=== PATIENT | male | born 1960 | race Caucasian/White ===

== ENCOUNTER 2020-02-13 15:03 | Observation (INO) | payer BC, OTHER ==
[~2020-02-13 15:03] MED LIST: DEXAMETHASONE SOD PHOSPHATE INJ 4 MG/1 ML VIAL ONE; ONDANSETRON HCL INJ/PF 4 MG/2 ML SDV ONE; SUCCINYLCHOLINE CHLORIDE INJ 200 MG/10 ML VIAL ONE
[2020-02-13] MEDS ORDERED: DIPH/PERTUSS(ACELL)/TETANUS VAC/PF 0.5 ML SYR (>=10YO) IM ONE (15:07)
--- NOTE | 2020-02-13 15:09 | ER Document Report ---
ED Medical Screen (RME) - General Stated Complaint: RIGHT HAND INJURY Time Seen by Provider: 02/13/20 15:07 Primary Care Provider: MARLON LOUIE [Primary Care Provider] - Follow up as needed Notes: HPI: 59-year-old male presenting with a laceration to the right wrist. Patient was using a rotary surface grinder and it kicked back striking him on the volar aspect of the right wrist. States he had difficulty controlling the bleeding, not on blood thinners, not up-to-date on tetanus vaccination PHYSICAL EXAMINATION: Dressing was opened in triage. There is a 3.5 cm diagonal laceration over the volar distal right wrist on the radial side. Not actively b leeding at this time but large amount of blood noted on the dressing I have greeted and performed a rapid initial assessment of this patient. A comprehensive ED assessment and evaluation of the patient, analysis of test results and completion of medical decision making process will be conducted by an additional ED providers. Doctor's Discharge - Discharge Referrals: MARLON LOUIE [Primary Care Provider] - Follow up as needed
--- NOTE | 2020-02-13 15:41 | RADIOLOGY REPORT (SQ) ---
EXAM DESCRIPTION: WRIST RIGHT 3 VIEWS IMAGES COMPLETED DATE/TIME: 02/13/2020 3:29 pm REASON FOR STUDY: wrist laceration COMPARISON: None. EXAM PARAMETERS: NUMBER OF VIEWS: Three views. TECHNIQUE: AP, lateral and oblique radiographic images acquired of the right wrist. LIMITATIONS: None. FINDINGS: MINERALIZATION: Normal. BONES: No acute fracture or dislocation. No worrisome bone lesions. JOINTS: No effusion. SOFT TISSUES: Mild soft tissue swelling. There are some 1-2 mm radiopaque foreign bodies in the righ t thumb the region of the proximal phalanx and MCP joint, possibly remote. OTHER: No other significant finding. IMPRESSION: NO FRACTURE.Mild soft tissue swelling. There are some 1-2 mm radiopaque foreign bodies in the right thumb the region of the proximal phalanx and MCP joint, possibly remote. TECHNICAL DOCUMENTATION: JOB ID: [id number] [place]-72 2010 [employer]- All Rights Reserved Reading location - IP/workstation name: [email or web address]
[2020-02-13] MEDS ORDERED: ONDANSETRON HCL INJ/PF 4 MG/2 ML SDV ONE (15:46)
[2020-02-13] MEDS ORDERED: ONDANSETRON HCL INJ/PF 4 MG/2 ML SDV IV ONE (15:48)
[2020-02-13] MEDS ORDERED: NORMAL SALINE 1000 ML 1,000 ML IV ONE (15:52)
[2020-02-13 16:15] LABS: ABSOLUTE EOSINOPHILS # (AUTO) 0.1 10^3/uL (0.0-0.6); ABSOLUTE LYMPHOCYTES (AUTO) 1.7 10^3/uL (0.5-4.7); ABSOLUTE MONOCYTES (AUTO) 0.7 10^3/uL (0.1-1.4); ABSOLUTE NEUT (AUTO) 10.2 10^3/uL (1.7-8.2); BASOPHILS % (AUTO) 0.4 % (0-2); EOSINOPHILS % (AUTO) 0.7 % (0-6); HEMOGLOBIN 13.8 g/dL (13.5-17.0); LYMPHOCYTES % (AUTO) 13.1 % (13-45); MEAN CORPUSCULAR HEMOGLOBIN 31.6 pg (27.0-33.4); MEAN CORPUSCULAR HGB CONC 34.5 g/dL (32.0-36.0); MEAN CORPUSCULAR VOLUME 92 fl (80-97); MONOCYTES % (AUTO) 5.7 % (3-13); PLATELET COUNT 230 10^3/uL (150-450); RED BLOOD COUNT 4.37 10^6/uL (4.35-5.55); RED CELL DISTRIBUTION WIDTH 13.4 % (11.5-14.0); SEGMENTED NEUTROPHILS % (AUTO) 80.1 % (42-78); TOTAL CELLS COUNTED % (AUTO) 100 %; WHITE BLOOD COUNT 12.8 10^3/uL (4.0-10.5)
[2020-02-13] MEDS ORDERED: FENTANYL CITRATE INJ/PF 100 MCG/2 ML AMPUL ONE ×2 (16:23→16:38)
--- NOTE | 2020-02-13 16:24 | ER Document Report ---
ED General - General Chief Complaint: Laceration Stated Complaint: RIGHT HAND INJURY Time Seen by Provider: 02/13/20 15:07 - HPI Notes: Patient is a 5-year-old male, [id number], who presents to the emergency department for evaluation. While using a billet grinder, it slipped, lacerating the radial aspect of his right volar forearm. He tried to achieve hemostasis at home with his hand raise, but it was "squirting" in a pulsatile fashion per family. His tetanus is not up-to-date. He denies any numbness or tingling. He has minimal pain. - Related Data Allergies/Adverse Reactions: No Known Allergies Allergy (Verified 02/13/20 15:08) Home Medications: Blood pressure medication per patient Past Medical History - General Information source: Patient - Social History Smoking Status: Never Smoker Frequency of alcohol use: 3-4 times a week, beer Family History: Reviewed & Not Pertinent, Hypertension - Past Medical History Cardiac Medical History: Reports: Hx Hypertension Review of Systems - Review of Systems Constitutional: No symptoms reported EENT: No symptoms reported Cardiovascular: No symptoms reported Respiratory: No symptoms reported Genitourinary: No symptoms reported Musculoskeletal: No symptoms reported Skin: See HPI Neurological/Psychological: No symptoms reported Physical Exam - Vital signs Vitals: Temp Pulse Resp BP Pulse Ox 97.8 F 135 H 20 106/86 H 98 02/13/20 15:12 02/13/20 15:12 02/13/20 15:12 02/13/20 15:12 02/13/20 15:12 - Notes Notes: This is a 59-year-old male who appears his stated age, no acute distress. Head is normocephalic and atraumatic, pupils are equal round, reactive to light. Onychosis moist. Heart is regular rate and rhythm, lungs are clear auscultation bilaterally. Examination of the right upper extremity yields a 3 and half ce ntimeter linear, transverse laceration to the radial aspect of the volar wrist. He has a blood pressure cuff in place to slow blood flow. Patient is full range of motion at the wrist, fingers, thumb. Capillary refill is brisk. Patient has 2+ radial pulse proximal to the wound, 1+ radial pulse distal to the wound. Course - Re-evaluation Re-evalutation: 02/13/20 16:24 Patient presented to the emergency department for evaluation. He had significant bleeding, blood pressure cuff was placed up to 220. I was able to temporarily achieve hemostasis. I had significant concern that the patient's radial artery had been compromised. I spoke initially to Dr. Lewis, who agrees that the patient needs to go to the OR. I was notified by nursing that he was starting to bleed through the pressure dressing that was in place. I was in the room helping to assist achieve hemostasis, new pressure dressing was getting ready replaced, with Dr. Ureña presented to the emergency department. He was able to evaluate the laceration rapidly and determined that this was in fact a radial arterial bleed. He took the patient directly to the OR. - Vital Signs Vital signs: Temp Pulse Resp BP Pulse Ox 97.8 F 135 H 20 106/86 H 98 02/13/20 15:12 02/13/20 15:12 02/13/20 15:12 02/13/20 15:12 02/13/20 15:12 - Laboratory Result Diagrams: 02/13/20 15:56 Laboratory results interpreted by me: 02/13/20 15:56 WBC 12.8 H Absolute Neuts (auto) 10.2 H Seg Neutrophils % 80.1 H - Diagnostic Test Radiology reviewed: Image reviewed, Reports reviewed Radiology results interpreted by me: 02/13/20 16:26 Wrist X-Ray 02/13/20 15:07 IMPRESSION: NO FRACTURE.Mild soft tissue swelling. There are some 1-2 mm radiopaque foreign bodies in the right thumb the region of the proximal phalanx and MCP joint, possibly remote. Critical Care Note - Critical Care Note Total time excluding time spent on procedures (mins): 30 Discharge - Discharge Clinical Impression: Laceration of radial artery Qualifiers: Encounter type: initial encounter Laterality: right Qualified Code(s): S55.111A - Laceration of radial artery at forearm level, right arm, initial encounter Condition: Stable Disposition: ADMITTED INPATIENT Admitting Provider: Surgicalist - Dr. Ureña Unit Admitted: OR
[2020-02-13] MEDS ORDERED: MIDAZOLAM 2 MG/2 ML INJ ONE (16:37)
[2020-02-13] MEDS ORDERED: CEFAZOLIN INJ 1 GM VIAL ONE (16:45)
[2020-02-13] MEDS ORDERED: BUPIVACAINE HCL 0.25 % INJ/PF (2.5 MG/1 ML) 30 ML VIAL ONE (16:45)
--- NOTE | 2020-02-13 17:38 | PDOC CONSULTATION ---
Consultation Consult Date: 02/13/20 Provider Consulted: Jonathan Lewis History of Present Illness Admission Date/PCP: 02/13/20 16:31 TOMAS CASTELLANOS Patient complains of: Right wrist laceration History of Present Illness: DOLORES DUEÑAS is a 59 year old male who sustained a grinder hardboard injury to his right wrist. Subjective HPI was not obtained due to intraoperative consultation. Past Medical History Cardiac Medical History: Reports: Hypertension Social History Smoking Status: Never Smoker Family History Family History: Reviewed & Not Pertinent, Hypertension Parental Family History Reviewed: No Children Family History Reviewed: NA Sibling(s) Family History Reviewed.: NA Medication/Allergy Allergies/Adverse Reactions: No Known Allergies Allergy (Verified 02/13/20 15:08) Physical Exam Vital Signs: Temp Pulse Resp BP Pulse Ox 97.8 F 135 H 20 106/86 H 98 02/13/20 15:12 02/13/20 15:12 02/13/20 15:12 02/13/20 15:12 02/13/20 15:12 Intake & Output 02/12/20 02/13/20 02/14/20 06:59 06:59 06:59 Weight 77.111 kg Musculoskeletal exam: PRESENT: other - Intraoperative examination of the right wrist demonstrated 4 cm laceration on the volar radial aspect of the wrist just proximal to the wrist flexion crease. Near complete laceration of the radial artery was noted with nondisplaced fracture of the distal radius. No evidence of median nerve involvement. Results Laboratory Results: 02/13/20 15:56 02/13/20 15:56 WBC 12.8 H RBC 4.37 Hgb 13.8 Hct 40.0 MCV 92 MCH 31.6 MCHC 34.5 RDW 13.4 Plt Count 230 Seg Neutrophils % 80.1 H Impressions: Wrist X-Ray 02/13/20 15:07 IMPRESSION: NO FRACTURE.Mild soft tissue swelling. There are some 1-2 mm radiopaque foreign bodies in the right thumb the region of the proximal phalanx and MCP joint, possibly remote. Assessment & Plan - Diagnosis (1) Open fracture of distal end of radius Qualifiers: Encounter type: initial encounter Open fracture type: open type I or II Laterality: right Is this a current diagnosis for this admission?: Yes (2) Laceration of radial artery Qualifiers: Encounter type: initial encounter Laterality: right Qualified Code(s): S55.111A - Laceration of radial artery at forearm level, right arm, initial encounter Is this a current diagnosis for this admission?: Yes Plan: Intraoperative consultation was obtained refer to op note for details. Patient will be treated with p.o. antibiotics no immobilization was required given the incomplete nature and stability of the fracture.
[2020-02-13] MEDS ORDERED: MEPERIDINE HCL/PF INJ 25 MG/1 ML DISP.SYRIN IV PRN (17:50)
[2020-02-13] MEDS ORDERED: OXYCODONE-ACETAMINOPHEN 5-325 MG TABLET PO PRN ×2 (17:50)
[2020-02-13] MEDS ORDERED: MORPHINE SULFATE 10 MG/ML INJ IV PRN (17:50)
[2020-02-13] MEDS ORDERED: FENTANYL CITRATE INJ/PF 100 MCG/2 ML AMPUL IV PRN ×3 (17:50)
[2020-02-13] MEDS ORDERED: ONDANSETRON HCL INJ/PF 4 MG/2 ML SDV IV PRN (17:50)
[2020-02-13] MEDS ORDERED: DIPHENHYDRAMINE HCL 50 MG/ML VIAL IV PRN (17:50)
[2020-02-13] MEDS ORDERED: PROMETHAZINE HCL INJ 25 MG/1 ML VIAL IV PRN ×2 (17:50)
[2020-02-13] MEDS ORDERED: RINGERS SOLUTION,LACTATED 1,000 ML IV PRN (17:59)
--- NOTE | 2020-02-13 17:59 | Operative Report ---
Operative Report DATE OF SURGERY: 02/13/20 PREOPERATIVE DIAGNOSIS: Right Radial Artery Laceration POSTOPERATIVE DIAGNOSIS: Same + Open Incomplete Fracture Distal Radius OPERATION: 1. Right wrist radial artery anastomosis. 2. Irrigation debridement open fracture right distal radius. 3 Exploration with neurolysis median nerve. 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 Initially was at home attempted to control the bleeding but continued to have pulsatile blood loss and then presented to the emergency room. While in the emergency room he was taken to the trauma bay where area was explored and a tourniquet placed. He was found to have a complete radial artery injury. Neurovascular status at that time demonstrate intact flexion-extension of the thumb through the small finger somewhat incomplete sensory examination given the tourniquet placement. Given the radial artery injury and concern for acute blood loss he was brought to the emergency room by Dr. Ureña and Joshua for exploration and repair. procedure In Detail: PPatient was taken back to the operative room where transferred to the operative table and placed under general anesthesia. Once they were adequately anesthetized hand was prepped with Betadine and draped in a sterile fashion A surgical team debriefing was performed ensuring all instrumentation was available, the surgical procedure was discussed with possible concerns reviewed. There was found to be A timeout was done identifying correct patient, procedure and extremity everyone in attendance agree with this and verbalized no concerns. 4 cm laceration on the volar-radial aspect of the wrist was explored near complete laceration of the radial artery with a small soft tissue bridge along the radial border. Bleeding was then controlled. Small peripheral tributaries of the radial artery were isolated and tied off. Small vein on the volar aspect of the wrist was also isolated and tied off until bleeding was controlled. Radial artery was clamped proximally and distally. Patient had good capillary refill and normal skin turgor indicative of intact complete arch and blood flow through the ulnar artery. Exploration of the wound demonstrate a incomplete fracture of the distal radius which is extra-articular. The area was debrided and irrigated with normal saline. Exploration of the remaining wound demonstrate disruption of the flexor carpi radialis. Palmaris longus and flexor tendons were explored and remained intact. Volar antebrachial fascia was then incised and the median nerve was id entified and incomplete continuity with out evidence of injury it was neurolysed through the small window through the wound. No residual compression was appreciated. Attention then turned to radial artery repair. Adventitia was stripped proximally and distally. The radial artery was then reapproximated with a running 6-0 Prolene suture and secured. At completion of the repair anastomosis was checked and ensured blood flow proximally and distally. Sterile Doppler was placed confirming adequate flow. Patient continued to have adequate cap refill and normal skin turgor throughout the remaining digits. Wound was then once again irrigated with normal saline. Subcutaneous tissues were closed with 3-0 Vicryl suture. Skin was closed with interrupted 4-0 nylon suture. Soft dressing was placed. Sponge counts, instrument counts, needle counts were correct. Patient was then awoken from anesthesia. Transferred from the operating room table to the operating room stretcher. There was no intraoperative complications patient tolerated procedure well stable to PACU. Postop plan: Patient will follow-up in the office in 2 weeks for recheck. Will be kept overnight for IV antibiotics and neurovascular checks regularly. May be discharged home on p.o. antibiotics.
[2020-02-13] MEDS ORDERED: CEFAZOLIN 2 GM/D5W RTU 2 GM/50 ML RTUPB IV SCH (18:00)
[2020-02-13] MEDS ORDERED: LABETALOL HCL INJ 20 MG/4 ML DISP.SYRIN IV ONE (18:23)
--- NOTE | 2020-02-13 18:28 | PDOC H&P ---
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 This happened approximately 2:00 this afternoon. Patient seen the emergency department at 3:00, triaged, evaluated and felt to have a radial artery injury and apparently hand surgery was consulted. Dr. Ureña was in the OR suite, and over her the anesthesiologist ask about injury to the hand. I phoned the emergency department and awaited pickup by Dr. Ontiveros, however she could not come to the phone because she was attending to patient. I therefore walked to the emergency department and witnessed the right arm laceration at the distal radius with active arterial bleeding, and took over the situation by applying direct pressure and activating the OR team. The patient was had strong pulse in the now occluded radial artery and it was awake and alert and cooperative. We took the patient directly to the operating room. Past Medical History Past Medical History: Alcohol abuse Cardiac Medical History: Reports: Hypertension Past Surgical History Past Surgical History: History of trauma to the right hand in the remote past Social History Information Source: Patient Smoking Status: Never Smoker Electronic Cigarette use?: No Hx Recreational Drug Use: No Hx Prescription Drug Abuse: No Past Social History Note: History of alcohol abuse - Advance Directive Resuscitation Status: Full Code Family History Family History: None, Reviewed & Not Pertinent, Hypertension Parental Family History Reviewed: No Children Family History Reviewed: No Sibling(s) Family History Reviewed.: No Medication/Allergy Allergies/Adverse Reactions: No Known Allergies Allergy (Verified 02/13/20 15:08) Review of Systems Constitutional: ABSENT: chills, fever(s), headache(s), weight gain, weight loss Eyes: PRESENT: other - Wears glasses. ABSENT: visual disturbances Ears: ABSENT: hearing changes Cardiovascular: ABSENT: chest pain, dyspnea on exertion, edema, orthropnea, palpitations Respiratory: ABSENT: cough, hemoptysis Genitourinary: ABSENT: dysuria, hematuria Musculoskeletal: ABSENT: joint swelling Integumentary: ABSENT: rash, wounds Psychiatric: ABSENT: anxiety, depression, homidical ideation, suicidal ideation Endocrine: ABSENT: cold intolerance, heat intolerance, polydipsia, polyuria Physical Exam Vital Signs: Temp Pulse Resp BP Pulse Ox 97.8 F 135 H 20 106/86 H 98 02/13/20 15:12 02/13/20 15:12 02/13/20 15:12 02/13/20 15:12 02/13/20 15:12 Intake & Output 02/12/20 02/13/20 02/14/20 06:59 06:59 06:59 Weight 77.111 kg General appearance: PRESENT: other - Obvious distress Head exam: PRESENT: normocephalic Eye exam: PRESENT: other - Eyeglasses on Mouth exam: PRESENT: dry mucosa Respiratory exam: PRESENT: clear to auscultation leilani Cardiovascular exam: PRESENT: RRR Vascular exam: PRESENT: other - My hand is on the lacerated radial artery overlying a 3 and half to 4 cm diagonal laceration in the skin. Rectal exam: PRESENT: deferred Extremities exam: PRESENT: other - Patient able to make a fist, extend the thumb and abduct the fingers on command with the right hand Musculoskeletal exam: PRESENT: other - Active bleeding coming from the transected right radial artery nearly visible the exposed wound. Neurological exam: PRESENT: oriented to person, oriented to place, oriented to time, oriented to situation Psychiatric exam: PRESENT: anxious Skin exam: PRESENT: dry, other - Hand is dirty with grease Results Laboratory Results: 02/13/20 15:56 02/13/20 15:56 WBC 12.8 H RBC 4.37 Hgb 13.8 Hct 40.0 MCV 92 MCH 31.6 MCHC 34.5 RDW 13.4 Plt Count 230 Seg Neutrophils % 80.1 H Impressions: Wrist X-Ray 02/13/20 15:07 IMPRESSION: NO FRACTURE.Mild soft tissue swelling. There are some 1-2 mm radiopaque foreign bodies in the right thumb the region of the proximal phalanx and MCP joint, possibly remote. Assessment & Plan - Diagnosis (1) Laceration of radial artery Qualifiers: Encounter type: initial encounter Laterality: right Qualified Code(s): S55.111A - Laceration of radial artery at forearm level, right arm, initial encounter Is this a current diagnosis for this admission?: Yes Plan: Impression and plan: Patient has acute injury to the right wrist following track grinder operator trauma with obvious laceration to the right radial artery with uncontrolled hemorrhage. Patient needs to be taken directly to the operating room for control, wrist exploration. Plan 1. Patient will be taken directly to the operating for control of the right radial artery injury. This was explained to the patient. Dr. Nick Lewis, orthopedic surgeon, is in route to assist in the right wrist exploration 2. Because of the emergent nature of the procedure, COVID test will be obtained postoperatively. 3. Emergency operating room seen being brought in. (2) Open fracture of distal end of radius Qualifiers: Encounter type: initial encounter Open fracture type: open type I or II Laterality: right Is this a current diagnosis for this admission?: Yes (3) Alcohol abuse Is this a current diagnosis for this admission?: Yes (4) Hypertension Is this a current diagnosis for this admission?: Yes - Time Time Spent: 30 to 50 Minutes Critical Time spent with patient: Less than 15 minutes Medications reviewed and adjusted accordingly: Yes Anticipated Discharge Disposition: Home, Self Care Anticipated Discharge Timeframe: within 24 hours
[2020-02-13] MEDS ORDERED: PROPOFOL INJ 200 MG/20 ML VIAL IV ONE (18:44)
[2020-02-13 19:41] LABS: HEMATOCRIT 34.7 % (37.9-51.0); HEMOGLOBIN 12.2 g/dL (13.5-17.0); MEAN CORPUSCULAR HGB CONC 35.2 g/dL (32.0-36.0); MEAN CORPUSCULAR VOLUME 91 fl (80-97); PLATELET COUNT 178 10^3/uL (150-450); RED BLOOD COUNT 3.82 10^6/uL (4.35-5.55); RED CELL DISTRIBUTION WIDTH 13.2 % (11.5-14.0); WHITE BLOOD COUNT 15.8 10^3/uL (4.0-10.5)
[2020-02-13 20:00] LABS: ANION GAP 11 (5-19); BLOOD UREA NITROGEN 14 mg/dL (7-20); CALCIUM 8.5 mg/dL (8.4-10.2); CARBON DIOXIDE 23 mmol/L (22-30); CHLORIDE 102 mmol/L (98-107); GLUCOSE 148 mg/dL (75-110); POTASSIUM 5.2 mmol/L (3.6-5.0)
[2020-02-13] MEDS ORDERED: CEFAZOLIN 2 GM/D5W RTU 2 GM/50 ML RTUPB IV ONE ×2 (21:07→21:08)
[2020-02-13] MEDS: CEFAZOLIN 2 GM/D5W RTU 2 GM/50 ML RTUPB IV SCH (21:26)
[2020-02-13] MEDS: OXYCODONE-ACETAMINOPHEN 5-325 MG TABLET PO PRN (22:47)
[2020-02-13] MEDS: ACETAMINOPHEN INJ/PF 1000 MG/100 ML SDV IV SCH (23:38)
[2020-02-14] MEDS: CEFAZOLIN 2 GM/D5W RTU 2 GM/50 ML RTUPB IV SCH (03:32)
[2020-02-14] MEDS: ACETAMINOPHEN INJ/PF 1000 MG/100 ML SDV IV SCH (05:09)
[2020-02-14 05:51] LABS: HEMATOCRIT 30.4 % (37.9-51.0); HEMOGLOBIN 10.6 g/dL (13.5-17.0); MEAN CORPUSCULAR HEMOGLOBIN 31.8 pg (27.0-33.4); MEAN CORPUSCULAR HGB CONC 34.9 g/dL (32.0-36.0); MEAN CORPUSCULAR VOLUME 91 fl (80-97); PLATELET COUNT 178 10^3/uL (150-450); RED BLOOD COUNT 3.34 10^6/uL (4.35-5.55); RED CELL DISTRIBUTION WIDTH 13.2 % (11.5-14.0); WHITE BLOOD COUNT 14.5 10^3/uL (4.0-10.5)
[2020-02-14 08:26] VITALS: BP 135/83
--- NOTE | 2020-02-14 08:36 | PDOC DISCHARGE SUMMARY ---
General - Admit/Disc Date/PCP Admission Date/Primary Care Provider: 02/13/20 16:31 DARI LEHMAN, LIAISON ENGINEER-C Discharge Date: 02/14/20 - Discharge Diagnosis Final Diagnosis: Traumatic laceration right radial artery and open fracture right radius - Assessment Summary: The patient is a 5-year-old white male who arrived in [facility] via ground rescue approximately 3:00 PM after sustaining a grinder gear injury to his right wrist with pulsatile bleeding from the wound. He was evaluated in the emergency department, felt to have a right radial artery injury and had a to urniquet applied. Emergency department contacted orthopedics who was on the way in to the ER when Dr. Ureña arrived in the trauma room found the right radial artery to be lacerated, and actively hemorrhaging, applied to direct finger pressure to the wound, and took the patient directly to the operating room. Because of the emergent nature of the situation, no COVID test was obtained. The patient underwent general anesthesia, right radial artery exploration, right radial artery repair; Dr. Lewis, orthopedist, explore the right median nerve and other structures and felt there was no significant injury therein. Wound was closed and patient was recovered on the floor uneventfully. Preoperatively and postoperatively he demonstrated excellent hand function, and maintained good perfusion to his distal tissues throughout. The following day after receiving IV antibiotics, he was felt to receive maximum benefit of hospitalization was discharged home with dressing changes. He will follow-up with Dr. Ureña at [place] [facility] of [facility] for surgery in approximately 1 week. He will take Tylenol or Motrin as needed pain and restrict the use of his right hand - Additional Information Resuscitation Status: Full Code Discharge Diet: As Tolerated Discharge Activity: Other - Deliberate restriction of right hand use Referrals: LOCALMD,NO [NO LOCAL MD] - Follow up as needed Home Medications: Lisinopril 20 mg PO DAILY 02/14/20 History of Present Illiness History of Present Illness: DOLORES DUEÑAS is a 59 year old male Who presents emergency department via ground rescue complaining of right wrist bleeding as result of operating a grinder gear while working on a boat trailer. This happened approximately 2:00 this afternoon. Patient seen the emergency department at 3:00, triaged, evaluated and felt to have a radial artery injury and apparently hand surgery was consulted. Dr. Ureña was in the OR suite, and over her the anesthesiologist ask about injury to the hand. I phoned the emergency department and awaited pickup by Dr. Ontiveros, however she could not come to the phone because she was attending to patient. I therefore walked to the emergency department and witnessed the right arm laceration at the distal radius with active arterial bleeding, and took over the situation by applying direct pressure and activating the OR team. The patient was had strong pulse in the now occluded radial artery and it was awake and alert and cooperative. We took the patient directly to the operating room. Physical Exam Vital Signs: Temp Pulse Resp BP Pulse Ox 98.2 F 93 16 135/83 H 97 02/14/20 08:25 02/14/20 08:25 02/14/20 08:25 02/14/20 08:25 02/14/20 08:25 Intake & Output 02/13/20 02/14/20 02/15/20 06:59 06:59 06:59 Intake Total 3260 Output Total 50 Balance 3210 Weight 74.4 kg Results Laboratory Results: WBC 14.5 10^3/uL (4.0-10.5) H 02/14/20 04:50 RBC 3.34 10^6/uL (4.35-5.55) L 02/14/20 04:50 Hgb 10.6 g/dL (13.5-17.0) L 02/14/20 04:50 Hct 30.4 % (37.9-51.0) L 02/14/20 04:50 MCV 91 fl (80-97) 02/14/20 04:50 MCH 31.8 pg (27.0-33.4) 02/14/20 04:50 MCHC 34.9 g/dL (32.0-36.0) 02/14/20 04:50 RDW 13.2 % (11.5-14.0) 02/14/20 04:50 Plt Count 178 10^3/uL (150-450) 02/14/20 04:50 Lymph % (Auto) 13.1 % (13-45) 02/13/20 15:56 Frio % (Auto) 5.7 % (3-13) 02/13/20 15:56 Eos % (Auto) 0.7 % (0-6) 02/13/20 15:56 Baso % (Auto) 0.4 % (0-2) 02/13/20 15:56 Absolute Neuts (auto) 10.2 10^3/uL (1.7-8.2) H 02/13/20 15:56 Absolute Lymphs (auto) 1.7 10^3/uL (0.5-4.7) 02/13/20 15:56 Absolute Monos (auto) 0.7 10^3/uL (0.1-1.4) 02/13/20 15:56 Absolute Eos (auto) 0.1 10^3/uL (0.0-0.6) 02/13/20 15:56 Absolute Basos (auto) 0.0 10^3/uL (0.0-0.2) 02/13/20 15:56 Seg Neutrophils % 80.1 % (42-78) H 02/13/20 15:56 Sodium 135.7 mmol/L (137-145) L 02/13/20 19:22 Potassium 5.2 mmol/L (3.6-5.0) H 02/13/20 19:22 Chloride 102 mmol/L (98-107) 02/13/20 19:22 Carbon Dioxide 23 mmol/L (22-30) 02/13/20 19:22 Anion Gap 11 (5-19) 02/13/20 19:22 BUN 14 mg/dL (7-20) 02/13/20 19:22 Creatinine 0.79 mg/dL (0.52-1.25) 02/13/20 19:22 Est GFR ( Amer) > 60 (>60) 02/13/20 19:22 Est GFR (MDRD) Non-Af > 60 (>60) 02/13/20 19:22 Glucose 148 mg/dL (75-110) H 02/13/20 19:22 Calcium 8.5 mg/dL (8.4-10.2) 02/13/20 19:22 SARS-CoV-2 (PCR) NEGATIVE (NEGATIVE) 02/13/20 21:27 Impressions: Wrist X-Ray 02/13/20 15:07 IMPRESSION: NO FRACTURE.Mild soft tissue swelling. There are some 1-2 mm radiopaque foreign bodies in the right thumb the region of the proximal phalanx and MCP joint, possibly remote.
[2020-02-14] MEDS ORDERED: CEFAZOLIN SODIUM 2 GM in DEXTROSE 5%-WATER 100 ML IV SCH (09:00)
[2020-02-14] MEDS: OXYCODONE-ACETAMINOPHEN 5-325 MG TABLET PO PRN (09:54)
[2020-02-14] MEDS ORDERED: ENOXAPARIN SODIUM INJ 40 MG/0.4 ML DISP.SYRIN SUBCUT SCH (10:00)
--- NOTE | 2020-03-02 15:07 | Operative Report ---
Operative Report DATE OF SURGERY: 03/02/20 PREOPERATIVE DIAGNOSIS: 1. Traumatic near complete transection of the right ra dial artery. 2. Acute blood loss anemia secondary to #1 above POSTOPERATIVE DIAGNOSIS: Same with minimal right open distal radius fracture OPERATION: 1. Control of exsanguinating right wrist laceration. 2. Repair of right radial artery. 3. Closure of right wrist laceration SURGEON: KYRIE JARAMILLO 1ST RECYCLABLE MATERIALS COLLECTOR: ronda ANESTHESIA: GA TISSUE REMOVED OR ALTERED: Thrombus right radial artery COMPLICATIONS: None ESTIMATED BLOOD LOSS: Significant prior to gaining mechanical control INTRAOPERATIVE FINDINGS: See below PROCEDURE: The patient is a 5-year-old white male who sustained a roll contour grinder injury to the right wrist with the immediate production of bright arterial blood at home. Patient used a self for ice compression dressing came to the emergency department. There he had a tourniquet placed on his right upper extremity above the antecubital fossa. Adelita arrived in the emergency department, took the tourniquet down, identified the acute source of hemorrhage which was the right radial artery, and held direct pressure on the lacerated right wrist over the right radial artery and physically wheeled the patient to the operating room himself. The OR team arrived, and general intubation was performed by the anesthesiologist. Again Dr. Wakefield is holding direct pressure over the right radial artery. The patient was positioned on the operating table, and an special ed assistant held direct pressure over the right radial artery where the right arm was prepped and draped in sterile fashion. Rapid timeout was conducted. The findings were significant for a diagonally oriented laceration of the radial artery, extending medially. With direct pressure on the radial artery, the radial artery was dissected out and found to be nearly completely transected. Proximal distal control of the radial artery was obtained with fine dissection. Small tributary arterioles and small veins were controlled with silk and/or ligation. We cleaned up the 2 ends of the radial artery after completely transecting it. There was brisk arterial inflow proximally, and distally decent backflow from the intact palmar arches. We flushed the radial artery proximally distally with heparinized saline, then completed a end-to-end anastomosis with 6-0 Prolene suture in a running continuous fashion. Once the anastomosis was complete, there is no significant bleeding, and clamps were released, thereby restoring flow through the radial artery. There appeared to be an element of competition from the ulnar artery, but the radial artery appeared to remain patent. The remainder of the local exploration was performed by Dr. Lewis who extended the traumatic laceration medially over the flexor retinaculum fascia. This portion of the operation was dictated by . When it was deemed safe for closure, sponge and needle counts are correct. No other repairs were affected. Wound closed in layers with 3-0 Vicryl, and 4 Ethilon suture. Sterile dressing applied including Xeroform, 4 x 4's and bulky supportive dressing.
== END 2020-02-14 10:10 | disposition home or self-care (01) ==
LOC: ER 15:03 → EH 16:31 → INTOOBSV 16:31 → 4N 19:05
PROVIDERS: ADMIT Surgery; ATTEND Surgery
DX: S55.111A Laceration of radial artery at forearm level, right arm, initial encounter (principal); S52.501B Unspecified fracture of the lower end of right radius, initial encounter for open fracture type I or II; W31.89XA Contact with other specified machinery, initial encounter; I10 Essential (primary) hypertension; F10.10 Alcohol abuse, uncomplicated; Z20.828 Contact with and (suspected) exposure to other viral communicable diseases
CPT/HCPCS: 11011; 35206; 99291; 96361; 90471; 96374; 36415 ×2; 85025; 85027; 87635; 80048; 73110; 90715; 99140; 00840; G0378 ×2; J2250; J0690 ×4; J1100; J3010; J3490; J0330; J2405; J7060; J7030; J7120; J2704; J1642; J0131 ×2; C9803